=== PATIENT | female | born 1945 | race Caucasian/White ===

== ENCOUNTER 2017-02-11 11:08 | Emergency (ER) | payer MEDICARE ==
[~2017-02-11] VITALS: Ht 152.4 cm; Wt 63.5 kg
[2017-02-11] MEDS ORDERED: ROSUVASTATIN CA40 MG PO (11:33)
[2017-02-11] MEDS ORDERED: CLOPIDOGREL75 MG PO (11:33)
[2017-02-11] MEDS ORDERED: METOPROLOL TART25 MG PO (11:33)
[2017-02-11] MEDS ORDERED: ISOSORBIDE MONO30 MG PO (11:33)
[2017-02-11] MEDS ORDERED: NITROSTAT0.4 MG SL (11:34)
[2017-02-11] MEDS ORDERED: LEVOTHYROXINE50 MCG PO (11:34)
[2017-02-11] MEDS ORDERED: LEFLUNOMIDE20 MG PO (11:34)
[2017-02-11] MEDS ORDERED: FLUOXETINE HCL40 MG PO (11:34)
[2017-02-11] MEDS ORDERED: MONTELUKAST SOD10 MG PO (11:35)
[2017-02-11] MEDS ORDERED: ELMIRON100 MG PO (11:35)
[2017-02-11] MEDS ORDERED: ADVAIR 100-501 EACH INH (11:35)
[2017-02-11] MEDS ORDERED: PANTOPRAZOLE SO40 MG PO (11:35)
[2017-02-11] MEDS ORDERED: CHOLESTYRAMINE P4 GM PO (11:36)
[2017-02-11] MEDS ORDERED: GABAPENTIN600 MG PO (11:36)
[2017-02-11] MEDS ORDERED: VENTOLIN HFA18 GM INH (11:36)
[2017-02-11] MEDS ORDERED: KENALOG100 GM TOP (11:37)
[2017-02-11] MEDS ORDERED: CALCITRIOL0.25 MCG PO (11:37)
[2017-02-11] MEDS ORDERED: ASPIRIN EC81 MG PO (11:37)
[2017-02-11] MEDS ORDERED: METAXALONE800 MG PO (11:38)
[2017-02-11] MEDS ORDERED: BETAMETHASONE D MISC (11:38)
[2017-02-11] MEDS ORDERED: BACTRIM DS TAB1 EACH PO (12:41)
== END 2017-02-11 12:58 | disposition home or self-care (01) ==
LOC: ED 11:08
DX: N39.0 Urinary tract infection, site not specified (principal); I25.2 Old myocardial infarction; J45.909 Unspecified asthma, uncomplicated; E03.9 Hypothyroidism, unspecified; K21.9 Gastro-esophageal reflux disease without esophagitis; L40.9 Psoriasis, unspecified; I10 Essential (primary) hypertension; Z90.710 Acquired absence of both cervix and uterus; Z90.49 Acquired absence of other specified parts of digestive tract; Z98.890 Other specified postprocedural states; Z79.899 Other long term (current) drug therapy; Z79.51 Long term (current) use of inhaled steroids; Z79.82 Long term (current) use of aspirin; Z79.52 Long term (current) use of systemic steroids
CPT/HCPCS: 81001; 87077; 87088; 87186; 99283

== ENCOUNTER 2019-02-03 16:01 | Emergency (ER) | payer MEDICARE ==
[~2019-02-03] VITALS: Ht 152.4 cm; Wt 64.4 kg
[~2019-02-03 16:01] MED LIST: ADVAIR 100-501 EACH INH; ASPIRIN EC81 MG PO; BACTRIM DS TAB1 EACH PO; BETAMETHASONE D MISC; CALCITRIOL0.25 MCG PO; CHOLESTYRAMINE P4 GM PO; CLOPIDOGREL75 MG PO; ELMIRON100 MG PO; FLUOXETINE HCL40 MG PO; GABAPENTIN600 MG PO; ISOSORBIDE MONO30 MG PO; KENALOG100 GM TOP; LEFLUNOMIDE20 MG PO; LEVOTHYROXINE50 MCG PO; METAXALONE800 MG PO; METOPROLOL TART25 MG PO; MONTELUKAST SOD10 MG PO; NITROSTAT0.4 MG SL; PANTOPRAZOLE SO40 MG PO; ROSUVASTATIN CA40 MG PO; VENTOLIN HFA18 GM INH
[2019-02-03] MEDS ORDERED: NORVASC5 MG PO (16:18)
[2019-02-03] MEDS ORDERED: BREO ELLIPTA I1 EACH INH (16:19)
[2019-02-03] MEDS ORDERED: NEURONTIN800 MG PO (16:20)
[2019-02-03] MEDS ORDERED: CHOLESTYRAMINE P4 GM PO (16:21)
[2019-02-03] MEDS ORDERED: CORMAX50 ML TOP (16:22)
--- NOTE | 2019-02-03 19:35 | EKG ---
[facility] [address] [place], [place] [address] Signed Normal sinus rhythm Normal ECG No previous ECGs available Confirmed by CARA ATWOOD DO ([id number]) on 02/03/2019 7:35:00 PM Electronically Signed By: CARA ATWOOD DO 02/03/19 1935 PATIENT NAME: CHELO STEVENS JUSTYN Electrocardiogram DATE OF : 41 PHYSICIAN: CARA ATWOOD DO REPORT #: [id number] REPORT IS CONFIDENTIAL AND NOT TO BE RELEASED WITHOUT AUTHORIZATION
[2019-02-03] MEDS ORDERED: PREDNISONE20 MG PO (19:36)
== END 2019-02-03 19:48 | disposition home or self-care (01) ==
LOC: ED 16:01
DX: R09.02 Hypoxemia (principal); I10 Essential (primary) hypertension; J45.909 Unspecified asthma, uncomplicated; I25.2 Old myocardial infarction; E03.9 Hypothyroidism, unspecified; K21.9 Gastro-esophageal reflux disease without esophagitis; Z79.899 Other long term (current) drug therapy; Z79.82 Long term (current) use of aspirin
CPT/HCPCS: 71045; 71260; 80053; 83735; 83880; 84484; 85025; 93005; 93010; 94640; 99285-25; J7040; Q9967